=== PATIENT | male | born 1980 | race African-American/Black ===

== ENCOUNTER 2018-04-17 14:38 | Outpatient (CLI) | payer OTHER ==
--- NOTE | 2018-04-17 15:37 | RAD ---
CERVICAL SPINE THREE VIEWS: Indication: Disability examination. Comparison: None. FINDINGS: The cervical spine is evaluated from the C7 to T1 on the lateral projection. Prevertebral soft tissue s are normal appearing. No acute fracture is evident. Lateral masses are symmetric. Mild disc degener ative disease is seen at C4-5. Lung apices are clear. IMPRESSION: Mild disc degenerative disease at C4-5. POS: [facility]
== END 2018-04-17 14:39 | disposition home or self-care (01) ==
LOC: BICRAD 14:38
PROVIDERS: ATTEND Internal Medicine
DX: Z02.71 Encounter for disability determination (principal); M50.321 Other cervical disc degeneration at C4-C5 level
CPT/HCPCS: 72040